=== PATIENT | female | born 1980 | race Caucasian/White ===

== ENCOUNTER 2018-06-26 21:16 | Emergency (ER) | payer MEDICAID ==
[~2018-06-26] VITALS: Ht 162.6 cm; Wt 55.0 kg
[~2018-06-26 21:16] MED LIST: NO MEDS
[2018-06-26 22:48] VITALS: BP 107/61
== END 2018-06-27 05:33 | disposition left against medical advice (07) ==
LOC: ER 21:16
DX: Z53.21 Procedure and treatment not carried out due to patient leaving prior to being seen by health care provider (principal)